=== PATIENT | female | born 1980 | race African-American/Black ===

== ENCOUNTER 2018-08-18 00:08 | Emergency (ER) | payer OTHER ==
[~2018-08-18] VITALS: Ht 165.1 cm; Wt 103.0 kg
[2018-08-18] MEDS ORDERED: MEDROLPACK PO (04:26)
[2018-08-18] MEDS ORDERED: ALL DAY ALLERGY10 M3 PO (04:26)
== END 2018-08-18 04:41 | disposition home or self-care (01) ==
LOC: ER 00:08
DX: L27.1 Localized skin eruption due to drugs and medicaments taken internally (principal); L50.0 Allergic urticaria; T36.3X5A Adverse effect of macrolides, initial encounter